=== PATIENT | female | born 1970 | race African-American/Black ===

== ENCOUNTER 2020-06-15 19:29 | Emergency (ER) | payer BC ==
[~2020-06-15] VITALS: Ht 170.2 cm; Wt 96.0 kg
[2020-06-15] MEDS ORDERED: ACETAMINOPHEN 325MG TABLET PO ONE (20:15)
[2020-06-15] MEDS ORDERED: IBUPROFEN 800MG TABLET PO ONE (21:15)
[2020-06-15 21:25] VITALS: BP 129/81
== END 2020-06-15 21:26 | disposition home or self-care (01) ==
LOC: ER 19:29
DX: M79.674 Pain in right toe(s) (principal)
CPT/HCPCS: 73630; 99283; Z7610